=== PATIENT | female | born 1950 | race American Indian/Alaskan Native ===

== ENCOUNTER → 2016-07-10 | Outpatient (CLI) | payer OTHER | LOC: FIMAGING 08:47 | PROVIDERS: ATTEND Family Medicine | DX: Z13.820 Encounter for screening for osteoporosis (principal); M54.9 Dorsalgia, unspecified; E03.9 Hypothyroidism, unspecified; Z78.0 Asymptomatic menopausal state; Z82.62 Family history of osteoporosis; Z85.07 Personal history of malignant neoplasm of pancreas; Z85.820 Personal history of malignant melanoma of skin; Z79.899 Other long term (current) drug therapy | CPT/HCPCS: G0202 ==

== ENCOUNTER 2017-02-09 09:06 | Emergency (ER) | payer OTHER ==
[2017-02-09 09:13] VITALS: BP 116/79; PULSE 79; RESP 18; TEMP 98.2; O2SAT 98
[2017-02-09] MEDS ORDERED: FLUORESCEIN SODIUM 1 MG STRIP OP ONE (09:24)
[2017-02-09] MEDS ORDERED: PROPARACAINE 0.5% 15 ML OPHT DROP OP ONE (09:24)
--- NOTE | 2017-02-09 09:28 | EDPHY ---
H & P Smoking Status: Never smoked Time Seen by Provider: 02/09/17 09:20 HPI/ROS: CHIEF COMPLAINT: Bilateral eye irritation/foreign body HISTORY OF PRESENT ILLNESS: 66-year-old female with no corrective lens use history, up-to-date tetanus, states that shortly prior to arrival she was removing laundry detergent granules from their container when a few cranials foot doubt and impacted her bilateral eyes, she immediately irrigated both areas but is complaining of continued irritation to the right eye particularly. Positive photophobia. Patient has a baseline of right eye no distance vision. PHYSICAL EXAM (Prior to examination, patient consented to physical exam, hands were washed and my usual and customary physical exam procedures followed) 1) GENERAL: Well-developed, well-nourished, alert and oriented. Appears uncomfortable, sitting in a darkened room 2) HEAD: Normocephalic 3) ENT: no facial wounds or jaimes, no erythema no irritation. 4) LUNGS: Breathing comfortably. 5) OCULAR EXAM: Visual Acuity: noted from Nurse's notes. Comprehensive eye examination is performed after irrigation. Preprocedure pH bilaterally 7, post procedure pH bilaterally is 7 Pupils:equal round and reactive to light EOMI Lids: no edema or swelling, upper and lower lids were everted and no foreign bodies were visualized, no areas of increased fluorescein uptake. Skin: no proptosis, no periorbital erythema or swelling, no vesicles, no pain with extraocular movements. Conjunctivae: not injected, no discharge, negative Shamar test. Cornea: exam with fluorescein shows small corneal abrasion right eye, no corneal abrasion or ulceration to the left eye. Anterior chamber:normal, no hyphema or hypopyon (Radha,D Aurea) Constitutional: Initial Vital Signs Temperature (C) 36.8 C 02/09/17 09:09 Heart Rate 79 02/09/17 09:09 Respiratory Rate 18 02/09/17 09:09 Blood Pressure 116/79 02/09/17 09:09 O2 Sat (%) 98 02/09/17 09:09 O2 Delivery Mode Room Air Allergies/Adverse Reactions: azithromycin [From Zithromax] Allergy (Mild, Verified 02/09/17 09:14) gi upset cephalexin monohydrate [From Keflex] Allergy (Mild, Verified 02/09/17 09:14) gi upset citalopram hydrobromide [From Celexa] Allergy (Mild, Verified 02/09/17 09:14) gi upset erythromycin base [Erythromycin Base] Allergy (Mild, Verified 02/09/17 09:14) gi upset levofloxacin [From Levaquin] Allergy (Mild, Verified 02/09/17 09:14) gi upset Home Medications: Medication Instructions Recorded Albuterol [Proventil Inhaler] 1 - 2 puffs IH Q4 PRN 05/08/13 Amphet Asp/Amphet/D-Amphet 5 mg PO DAILY 05/08/13 [Dextroamp-Amphet ER 5 mg Cap] Atorvastatin Calcium [Lipitor 20 20 mg PO HS 05/08/13 mg (RX)] Cholecalciferol Vit D3 [Vitamin D3 5,000 units PO DAILY 05/08/13 1000 units (OTC)] Fluticasone/Salmeterol [Advair 1 each IH BID 05/08/13 250-50 Diskus] Herbals/Supplements -Info Only 1 each PO AD 05/08/13 Ibuprofen [Motrin 600 mg (RX)] 600 mg PO BID PRN 05/08/13 Ipratropium/Albuterol [Duoneb (RX)] 3 ml IH 5XD 05/08/13 Levothyroxine [Synthroid 75 mcg 75 mcg PO DAILY06 05/08/13 (RX)] Rabeprazole Sodium [Aciphex] 20 mg PO BID 05/08/13 Ranitidine HCl [Zantac] 150 mg PO HS 05/08/13 Zolpidem Tartrate [Ambien 5MG (RX)] 5 - 10 mg PO HS PRN 05/08/13 traZODone [traZODONE 50MG (RX)] 50 mg PO HS 05/08/13 Ciprofloxacin HCl/Dexameth 4 drop OT BID #1 drops.susp 02/09/17 [Ciprodex Otic Suspension] MDM/Departure - MDM Medications Given: Discontinued Medications Fluorescein Sodium ([id number]-A-[id number]) 2 mg OP EDNOW ONE Stop: 02/09/17 09:25 Last Admin: 02/09/17 09:39 Dose: Not Given Proparacaine HCl (Alcaine 0.5%) 1 drops OP EDNOW ONE Stop: 02/09/17 09:25 Last Admin: 02/09/17 09:39 Dose: Not Given ED Course/Re-evaluation: This patient was re-evaluated with serial examinations, she is feeling "100% better "after bilateral eye irrigation. She is noted to have a small corneal abrasion which I suspect is is more than likely secondary to the granules of laundry detergent impacting her eye. PH remained 7. She is started on Ocuflox. Given ophthalmology follow-up. Given usual and customary ophthalmological precautions instructions.Care of patient under supervision of secondary supervising physician Dr Castillo . (Radha,Nadine Villar) I did not see this patient while she was in the emergency department. However her care was discussed with PA while the patient was in the department. I agree with treatment plan and management (Herb Castillo) - Depart Disposition: Home, Routine, Self-Care Clinical Impression: Chemical insult, eye Qualifiers: Encounter type: sequela Laterality: right Qualified Code(s): T26.91XS - Corrosion of right eye and adnexa, part unspecified, sequela Corneal abrasion, right Qualifiers: Encounter type: initial encounter Qualified Code(s): S05.01XA - Injury of conjunctiva and corneal abrasion without foreign body, right eye, initial encounter Condition: Good Instructions: Corneal Abrasion (ED) Additional Instructions: Return to the ER if you develop new or worsening symptoms Prescriptions: Ciprofloxacin HCl/Dexameth [Ciprodex Otic Suspension] 4 drop OT BID #1 drops.susp Referrals: Aleksandar Vail MD [Medical Doctor] - 1 day without fail
== END 2017-02-09 11:58 | disposition home or self-care (01) ==
DX: S05.01XA Injury of conjunctiva and corneal abrasion without foreign body, right eye, initial encounter (principal); T26.91XA Corrosion of right eye and adnexa, part unspecified, initial encounter; T55.1X1A Toxic effect of detergents, accidental (unintentional), initial encounter; X58.XXXA Exposure to other specified factors, initial encounter

== ENCOUNTER → 2017-07-14 | Outpatient (CLI) | payer OTHER | LOC: FIMAGING 10:32 | PROVIDERS: ATTEND Family Medicine | DX: Z12.31 Encounter for screening mammogram for malignant neoplasm of breast (principal) ==

== ENCOUNTER → 2018-09-14 | Outpatient (CLI) | payer OTHER | LOC: FIMAGING 14:15 | PROVIDERS: ATTEND Family Medicine | DX: Z12.31 Encounter for screening mammogram for malignant neoplasm of breast (principal); Z80.3 Family history of malignant neoplasm of breast ==